=== PATIENT | female | born 1965 | race African-American/Black ===

== ENCOUNTER 2016-10-26 14:08 | Inpatient (IN) | payer OTHER ==
--- NOTE | 2016-10-26 14:16 | ER Document Report ---
ED GI Bleed / Rectal Pain - General Chief Complaint: Rectal Bleeding Stated Complaint: RECTAL BLEEDING Time Seen by Provider: 10/26/16 14:10 Notes: The patient is a 51-year-old female, past medical history diabetes, hypertension , migraines, presents after 2 episodes of bright red blood in her bowel movements. She was feeling slightly lightheaded. She has not had a colonoscopy in the past. She denies rectal pain, abdominal pain, fevers, blood thinner use, chest pain, shortness of breath, rectal trauma or urinary symptoms. TRAVEL OUTSIDE OF THE [place] IN LAST 30 DAYS: No - Related Data Allergies/Adverse Reactions: No Known Allergies Allergy (Unverified 10/26/16 14:16) Home Medications: Current Home Medications No Home Medications 10/26/16 [History] Past Medical History - General Information source: Patient - Social History Smoking Status: Unknown if Ever Smoked Family History: Reviewed & Not Pertinent - Past Medical History Cardiac Medical History: Reports: Hx Hypertension Endocrine Medical History: Reports: Hx Diabetes Mellitus Type 2 Review of Systems - Review of Systems Notes: REVIEW OF SYSTEMS: CONSTITUTIONAL: -fevers, -chills EENT: -eye pain, -difficulty swallowing, -nasal congestion CARDIOVASCULAR:-chest pain, -syncope. RESPIRATORY: -cough, -SOB GASTROINTESTINAL: +BRB per rectum, -abdominal pain, - nausea, -vomiting, - diarrhea GENITOURINARY: -dysuria, -hematuria MUSCULOSKELETAL: -back pain, -neck pain SKIN: -rash or skin lesions. HEMATOLOGIC: -easy bruising or bleeding. LYMPHATIC: -swollen, enlarged glands. NEUROLOGICAL: -altered mental status or loss of consciousness, -headache, - neurologic symptoms PSYCHIATRIC: -anxiety, -depression. ALL OTHER SYSTEMS REVIEWED AND NEGATIVE. Physical Exam - Vital signs Vitals: Pulse BP 109 H 149/108 H 10/26/16 14:43 10/26/16 14:43 - Notes Notes: PHYSICAL EXAMINATION: GENERAL: Well-appearing, well-nourished and in no acute distress. HEAD: Atraumatic, normocephalic. EYES: Pupils equal round and reactive to light, extraocular movements intact, sclera anicteric, conjunctiva are normal. ENT: nares patent, oropharynx clear without exudates. Moist mucous membranes. NECK: Normal range of motion, supple without lymphadenopathy LUNGS: Breath sounds clear to auscultation bilaterally and equal. No wheezes rales or rhonchi. HEART: Tachycardic, regular rhythm ABDOMEN: Soft, nontender, normoactive bowel sounds. BRB on rectal exam, no masses or hemorrhoids, No guarding, no rebound. No masses appreciated. EXTREMITIES: Normal range of motion, no pitting or edema. No cyanosis. NEUROLOGICAL: Cranial nerves grossly intact. Normal speech, normal gait. Normal sensory and motor exams. PSYCH: Normal mood, normal affect. SKIN: Warm, Dry, normal turgor, no rashes or lesions noted. Course - Re-evaluation Re-evalutation: 10/26/16 14:39 Pt had a syncopal episode that lasted ~20 seconds after she stood up while in the ER. No seizure activity was witnessed 10/26/16 15:03 Pt with continuing lower GI bleed. With tachycardia and syncope, pt needs Inpatient evaluation of her rectal bleeding. No GI adapted physical education aide today. Pt requesting transfer to [place]. Placed call to Transfer Center at 15:00. Awaiting callback. 10/26/16 15:[address] Reno at [facility] and she has accepted the patient. Awaiting bed assignment. 10/26/16 17:55 Updated call sheet provided to me. Dr. Connors (GI) is adapted physical education aide on the updated list. Left message to have him call back. Spoke to Dr. Santiago ( Hospitalist) and he has accepted patient to Tele as Inpatient. 10/26/16 19:[address] Connors about patient. Will perform colonoscopy in the morning unless patient becomes unstable overnight. - Vital Signs Vital signs: Temp Pulse Resp BP Pulse Ox 98.1 F 109 H 14 172/106 H 100 10/26/16 17:00 10/26/16 14:43 10/26/16 18:01 10/26/16 18:01 10/26/16 18:01 - Laboratory Result Diagrams: 10/26/16 16:25 10/26/16 14:20 Laboratory results interpreted by me: 10/26/16 10/26/16 10/26/16 14:20 14:20 14:38 WBC RBC 3.70 L Hgb 10.9 L Hct 33.1 L Absolute Neutrophils Est GFR ( Amer) 54 L Est GFR (Non-Af Amer) 45 L Glucose 168 H POC Glucose 176 H 10/26/16 16:25 WBC 14.1 H D RBC 3.26 L Hgb 9.9 L Hct 29.4 L Absolute Neutrophils 11.0 H Est GFR ( Amer) Est GFR (Non-Af Amer) Glucose POC Glucose Discharge - Discharge Clinical Impression: Lower GI bleed Syncope Qualifiers: Syncope type: unspecified Qualified Code(s): R55 - Syncope and collapse Condition: Stable Disposition: ADMITTED INPATIENT Admitting [facility] Admitted: Telemetry
[2016-10-26] MEDS ORDERED: NORMAL SALINE 1000 ML 1,000 ML IV ONE ×2 (14:23→16:50)
[2016-10-26 14:46] LABS: ABSOLUTE EOSINOPHILS # (AUTO) 0.1 10^3/uL (0.0-0.6); ABSOLUTE LYMPHOCYTES (AUTO) 2.4 10^3/uL (0.5-4.7); ABSOLUTE MONOCYTES (AUTO) 0.3 10^3/uL (0.1-1.4); ABSOLUTE NEUT (AUTO) 3.5 10^3/uL (1.7-8.2); BASOPHILS % (AUTO) 0.5 % (0-2); EOSINOPHILS % (AUTO) 1.9 % (0-6); HEMATOCRIT 33.1 % (36.0-47.0); HEMOGLOBIN 10.9 g/dL (12.0-15.5); HGB HCT DIFFERENCE -0.4; LYMPHOCYTES % (AUTO) 37.7 % (13-45); MEAN CORPUSCULAR HEMOGLOBIN 29.6 pg (27.0-33.4); MEAN CORPUSCULAR HGB CONC 33.1 g/dL (32.0-36.0); MEAN CORPUSCULAR VOLUME 89 fl (80-97); MONOCYTES % (AUTO) 4.8 % (3-13); RED CELL DISTRIBUTION WIDTH 13.4 % (11.5-14.0); SEGMENTED NEUTROPHILS % (AUTO) 55.1 % (42-78); WHITE BLOOD COUNT 6.4 10^3/uL (4.0-10.5)
[2016-10-26 15:04] LABS: ALANINE AMINOTRANSFERASE 31 U/L (9-52); ALBUMIN 3.6 g/dL (3.5-5.0); ALKALINE PHOSPHATASE 106 U/L (38-126); ANION GAP 10 (5-19); ASPARTATE AMINO TRANSFERASE 22 U/L (14-36); BILIRUBIN,DIRECT 0.3 mg/dL (0.0-0.4); BILIRUBIN,TOTAL 0.4 mg/dL (0.2-1.3); BLOOD UREA NITROGEN 18 mg/dL (7-20); CALCIUM 8.7 mg/dL (8.4-10.2); CARBON DIOXIDE 28 mmol/L (22-30); CHLORIDE 107 mmol/L (98-107); CREATININE RESULT 1.25 mg/dL (0.52-1.25); GLUCOSE 168 mg/dL (75-110); POTASSIUM 3.6 mmol/L (3.6-5.0); SODIUM 144.7 mmol/L (137-145); TOTAL PROTEIN 7.1 g/dL (6.3-8.2)
[2016-10-26] MEDS ORDERED: ONDANSETRON HCL INJ/PF 4 MG/2 ML SDV IV ONE (16:11)
[2016-10-26 16:43] LABS: ABSOLUTE EOSINOPHILS # (AUTO) 0.1 10^3/uL (0.0-0.6); ABSOLUTE LYMPHOCYTES (AUTO) 2.4 10^3/uL (0.5-4.7); ABSOLUTE MONOCYTES (AUTO) 0.6 10^3/uL (0.1-1.4); BASOPHILS % (AUTO) 0.2 % (0-2); EOSINOPHILS % (AUTO) 0.5 % (0-6); HEMATOCRIT 29.4 % (36.0-47.0); HEMOGLOBIN 9.9 g/dL (12.0-15.5); HGB HCT DIFFERENCE 0.3; LYMPHOCYTES % (AUTO) 17.3 % (13-45); MEAN CORPUSCULAR HEMOGLOBIN 30.4 pg (27.0-33.4); MEAN CORPUSCULAR HGB CONC 33.7 g/dL (32.0-36.0); MEAN CORPUSCULAR VOLUME 90 fl (80-97); RED BLOOD COUNT 3.26 10^6/uL (3.72-5.28)
[2016-10-26 16:50] LABS: WHITE BLOOD COUNT 14.1 10^3/uL (4.0-10.5)
[2016-10-26] MEDS ORDERED: NORMAL SALINE 1000 ML 1,000 ML IV PRN (18:01)
--- NOTE | 2016-10-26 18:54 | PDOC H&P ---
History of Present Illness Admission Date/PCP: 10/26/16 18:27 Patient complains of: Rectal bleeding History of Present Illness: HERBER DOAN is a 51 year old female with a chief complaint of rectal bleeding. The patient denies any gastrointestinal symptoms whatsoever until late last night when she had some stomach "bubbling." Overnight she had 2 separate episodes of bright red blood per rectum that she noticed mainly in the toilet bowl. After the second episode, her found her down on the ground. She was brought to the emergency department today where she had another 2 episodes of bright red blood per rectum. She also had another syncopal episode witnessed by the ED staff. She was somewhat hypotensive. She was started on IV fluids. Her initial hemoglobin was measured at 10.8 and a second sample was measured at 9.8. Dr. Connors gastroenterology has been consulted. The patient specifically denies a history of hemorrhoids, diverticulosis, colitis, and she denies any changes whatsoever in her bowel habits or bowel movement itself. She also denies nonspecific symptoms such as fever chills sweats or weight loss. She also denies nausea and vomiting. There is no family history of GI bleeding. She thinks perhaps her father had diverticulosis but it was never anything major. Past Medical History Cardiac Medical History: Reports: Hypertension Endocrine Medical History: Reports: Diabetes Mellitus Type 2 Social History Information Source: Patient Lives with: Family Smoking Status: Never Smoker Frequency of Alcohol Use: None Hx Recreational Drug Use: No Hx Prescription Drug Abuse: No Family History Family History: Reviewed & Not Pertinent Parental Family History Reviewed: Yes - Mother with HTN and DM. Father with HTN and diverticulosis. Children Family History Reviewed: No Sibling(s) Family History Reviewed.: No Medication/Allergy Home Medications: No Home Medications 10/26/16 Allergies/Adverse Reactions: No Known Allergies Allergy (Unverified 10/26/16 14:16) Review of Systems Constitutional: ABSENT: chills, fever(s), headache(s), weight gain, weight loss Eyes: ABSENT: visual disturbances Ears: ABSENT: hearing changes Cardiovascular: ABSENT: chest pain, dyspnea on exertion, edema, orthropnea, palpitations Respiratory: ABSENT: cough, hemoptysis Gastrointestinal: ABSENT: abdominal pain, constipation, diarrhea, hematemesis, nausea, vomiting Genitourinary: ABSENT: dysuria, hematuria Musculoskeletal: ABSENT: joint swelling Integumentary: ABSENT: rash, wounds Neurological: ABSENT: abnormal gait, abnormal speech, confusion, dizziness, focal weakness, syncope Psychiatric: ABSENT: anxiety, depression, homidical ideation, suicidal ideation Endocrine: ABSENT: cold intolerance, heat intolerance, polydipsia, polyuria Hematologic/Lymphatic: ABSENT: easy bleeding, easy bruising Physical Exam Vital Signs: Temp Pulse Resp BP Pulse Ox 98.1 F 109 H 14 172/106 H 100 10/26/16 17:00 10/26/16 14:43 10/26/16 18:01 10/26/16 18:01 10/26/16 18:01 General appearance: PRESENT: no acute distress, well-developed, well-nourished, other - obese Head exam: PRESENT: atraumatic, normocephalic Eye exam: PRESENT: conjunctiva pink, EOMI, PERRLA. ABSENT: scleral icterus Ear exam: PRESENT: normal external ear exam Mouth exam: PRESENT: moist, tongue midline Neck exam: ABSENT: carotid bruit, JVD, lymphadenopathy, thyromegaly Respiratory exam: PRESENT: clear to auscultation dawson. ABSENT: rales, rhonchi, wheezes Cardiovascular exam: PRESENT: RRR. ABSENT: diastolic murmur, rubs, systolic murmur Pulses: PRESENT: normal dorsalis pedis pul Vascular exam: PRESENT: normal capillary refill GI/Abdominal exam: PRESENT: normal bowel sounds, soft. ABSENT: distended, guarding, mass, organolmegaly, rebound, tenderness Rectal exam: PRESENT: deferred Extremities exam: PRESENT: full ROM. ABSENT: calf tenderness, clubbing, pedal edema Neurological exam: PRESENT: alert, awake, oriented to person, oriented to place , oriented to time, oriented to situation, CN II-XII grossly intact. ABSENT: motor sensory deficit Psychiatric exam: PRESENT: appropriate affect, normal mood. ABSENT: homicidal ideation, suicidal ideation Skin exam: PRESENT: dry, intact, warm. ABSENT: cyanosis, rash Assessment & Plan - Diagnosis (1) Lower GI bleed Is this a current diagnosis for this admission?: YesPlan: Monitor hemoglobin every 6 hours. We will observed in the IMCU so she can be monitored in view of the 2 recent syncopal episodes. Gastroenterology consult is pending. (2) Syncope Qualifiers: Syncope type: unspecified Qualified Code(s): R55 - Syncope and collapse Is this a current diagnosis for this admission?: YesPlan: The syncope is almost certainly related to the GI bleeding, hypovolemia, hypotension, etc. She was on IV fluids. Will watch closely. (3) DM2 (diabetes mellitus, type 2) Qualifiers: Diabetes mellitus complication status: without complication Diabetes mellitus shelter insulin use: without predatory animal exterminator use Qualified Code(s): E11.9 - Type 2 diabetes mellitus without complications Is this a current diagnosis for this admission?: YesPlan: We will check a hemoglobin A1c. We will continue her Januvia. (4) HTN (hypertension) Qualifiers: Hypertension type: essential hypertension Qualified Code(s): I10 - Essential (primary) hypertension Is this a current diagnosis for this admission?: YesPlan: The patient admits to a history of hypertension but also tells me she is not using any medications. At present she is hypotensive. We will monitor. (5) Obesity (BMI 30.0-34.9) Is this a current diagnosis for this admission?: Yes - Time Time Spent: 30 to 50 Minutes Medications reviewed and adjusted accordingly: Yes Anticipated discharge: Home
[2016-10-26] MEDS ORDERED: DEXTROSE 40% GEL 15 GM TUBE PO PRN ×2 (19:21)
[2016-10-26] MEDS ORDERED: DEXTROSE 50%-WATER 25 GM/50 ML DISP.SYRIN IV PRN ×2 (19:21)
[2016-10-26] MEDS ORDERED: GLUCAGON,HUMAN RECOMB 1 MG INJ SUBCUT PRN (19:21)
--- NOTE | 2016-10-26 19:23 | EKG REPORT ---
SEVERITY:- BORDERLINE ECG - SINUS TACHYCARDIA BORDERLINE T ABNORMALITIES, ANTERIOR LEADS : Confirmed by: Abdoulaye Sears MD 26-Oct-2016 19:22:19
[2016-10-26 19:28] LABS: HEMOGLOBIN 9.4 g/dL (12.0-15.5); HGB HCT DIFFERENCE 0.2; MEAN CORPUSCULAR HEMOGLOBIN 29.8 pg (27.0-33.4); MEAN CORPUSCULAR HGB CONC 33.5 g/dL (32.0-36.0); MEAN CORPUSCULAR VOLUME 89 fl (80-97); RED BLOOD COUNT 3.15 10^6/uL (3.72-5.28); RED CELL DISTRIBUTION WIDTH 13.3 % (11.5-14.0); WHITE BLOOD COUNT 10.3 10^3/uL (4.0-10.5)
[2016-10-26] MEDS ORDERED: HYDRALAZINE HCL INJ/PF 20 MG/1 ML SDV IV ONE (20:24)
[2016-10-26] MEDS ORDERED: PEG 3350/NA SULF,BICARB,CL/KCL 4000 ML PO ONE (20:30)
[2016-10-26] MEDS: PANTOPRAZOLE SODIUM 40 MG VIAL IV SCH (22:06)
[2016-10-27] MEDS ORDERED: MORPHINE SULFATE 10 MG/ML INJ ONE (03:14)
[2016-10-27] MEDS ORDERED: MORPHINE SULFATE 10 MG/ML INJ IV ONE (03:45)
[2016-10-27 04:50] LABS: ABSOLUTE MONOCYTES (AUTO) 0.3 10^3/uL (0.1-1.4); ABSOLUTE NEUT (AUTO) 4.7 10^3/uL (1.7-8.2); BASOPHILS % (AUTO) 0.5 % (0-2); EOSINOPHILS % (AUTO) 0.7 % (0-6); HEMATOCRIT 24.8 % (36.0-47.0); HEMOGLOBIN 8.5 g/dL (12.0-15.5); HGB HCT DIFFERENCE 0.7; LYMPHOCYTES % (AUTO) 27.8 % (13-45); MEAN CORPUSCULAR HEMOGLOBIN 30.4 pg (27.0-33.4); MEAN CORPUSCULAR HGB CONC 34.1 g/dL (32.0-36.0); MEAN CORPUSCULAR VOLUME 89 fl (80-97); MONOCYTES % (AUTO) 4.6 % (3-13); RED BLOOD COUNT 2.78 10^6/uL (3.72-5.28); RED CELL DISTRIBUTION WIDTH 13.4 % (11.5-14.0); SEGMENTED NEUTROPHILS % (AUTO) 66.4 % (42-78)
[2016-10-27 05:06] LABS: ANION GAP 8 (5-19); BLOOD UREA NITROGEN 19 mg/dL (7-20); CALCIUM 7.9 mg/dL (8.4-10.2); CARBON DIOXIDE 25 mmol/L (22-30); CHLORIDE 110 mmol/L (98-107); CREATININE RESULT 1.04 mg/dL (0.52-1.25); GLUCOSE 142 mg/dL (75-110); POTASSIUM 3.8 mmol/L (3.6-5.0); SODIUM 143.2 mmol/L (137-145)
[2016-10-27] MEDS ORDERED: NORMAL SALINE 250 ML IV PRN ×2 (05:39)
[2016-10-27] MEDS: PANTOPRAZOLE SODIUM 40 MG VIAL IV SCH (10:05)
[2016-10-27 11:42] LABS: PROTHROMBIN TIME 13.1 SEC (11.4-15.4)
[2016-10-27 11:43] LABS: PARTIAL THROMBOPLASTIN TIME 30.8 SEC (23.5-35.8)
[2016-10-27] MEDS ORDERED: NORMAL SALINE 1000 ML 1,000 ML IV PRN (11:45)
--- NOTE | 2016-10-27 11:57 | PDOC PROGRESS REPORT ---
Subjective Progress Note for:: 10/27/16 Subjective:: The patient denies any gastrointestinal symptoms whatsoever until late night when she had some stomach "bubbling." Overnight she had 2 separate episodes of bright red blood per rectum that she noticed mainly in the toilet bowl. After the second episode, her found her down on the ground. She was brought to the emergency department 10/26/2016 where she had another 2 episodes of bright red blood per rectum. She also had another syncopal episode witnessed by the ED staff. She was somewhat hypotensive. She was started on IV fluids. Her initial hemoglobin was measured at 10.8 and a second sample was measured at 9.8. She was admitted and Dr. Connors gastroenterology was consulted. The patient specifically denies a history of hemorrhoids, diverticulosis, colitis, and she denies any changes whatsoever in her bowel habits or bowel movement itself. She also denies nonspecific symptoms such as fever chills sweats or weight loss. She also denies nausea and vomiting. There is no family history of GI bleeding. She thinks perhaps her father had diverticulosis but it was never anything major. The patient has received IV fluids of D5 normal saline at 125 mL/h. Her hemoglobins have been checked every 6 hours and have documented a continued drop. The initial hemoglobin was 10.9 and earlier today it was 8.5. 3 units of packed red blood cell transfusions have been ordered. Gastroenterology plans a procedure today. The patient's only complaint is that of mild headache. She denies dizziness. There have been no other syncopal episodes. She has not been hypotensive. Her pulse is in the 100-110 range. Physical Exam Vital Signs: Temp Pulse Resp BP Pulse Ox 98.4 F 104 H 18 165/95 H 100 10/27/16 09:29 10/27/16 09:29 10/27/16 09:29 10/27/16 09:29 10/27/16 09:29 Intake & Output 10/26/16 10/27/16 10/28/16 06:59 06:59 06:59 Intake Total 4395 0 Output Total 750 Balance 3645 0 Weight 100.6 kg Additional comments: General appearance: PRESENT: no acute distress, well-developed, well-nourished, other - obese Head exam: PRESENT: atraumatic, normocephalic Eye exam: PRESENT: conjunctiva pink, EOMI, PERRLA. ABSENT: scleral icterus Ear exam: PRESENT: normal external ear exam Mouth exam: PRESENT: moist, tongue midline Neck exam: ABSENT: carotid bruit, JVD, lymphadenopathy, thyromegaly Respiratory exam: PRESENT: clear to auscultation dawson. ABSENT: rales, rhonchi, wheezes Cardiovascular exam: PRESENT: RRR. ABSENT: diastolic murmur, rubs, systolic murmur Pulses: PRESENT: normal dorsalis pedis pul Vascular exam: PRESENT: normal capillary refill GI/Abdominal exam: PRESENT: normal bowel sounds, soft. ABSENT: distended, guarding, mass, organolmegaly, rebound, tenderness Rectal exam: PRESENT: deferred Extremities exam: PRESENT: full ROM. ABSENT: calf tenderness, clubbing, pedal edema Neurological exam: PRESENT: alert, awake, oriented to person, oriented to place , oriented to time, oriented to situation, CN II-XII grossly intact. ABSENT: motor sensory deficit Psychiatric exam: PRESENT: appropriate affect, normal mood. ABSENT: homicidal ideation, suicidal ideation Skin exam: PRESENT: dry, intact, warm. ABSENT: cyanosis, rash Results Laboratory Results: 10/27/16 04:29 10/27/16 04:29 10/26/16 10/27/16 10/27/16 19:10 04:29 04:29 WBC 10.3 7.0 RBC 3.15 L 2.78 L Hgb 9.4 L 8.5 L Hct 28.0 L 24.8 L MCV 89 89 MCH 29.8 30.4 MCHC 33.5 34.1 RDW 13.3 13.4 Plt Count 227 238 Seg Neutrophils % 66.4 Lymphocytes % 27.8 Monocytes % 4.6 Eosinophils % 0.7 Basophils % 0.5 Absolute Neutrophils 4.7 Absolute Lymphocytes 2.0 Absolute Monocytes 0.3 Absolute Eosinophils 0.0 Absolute Basophils 0.0 Sodium 143.2 Potassium 3.8 Chloride 110 H Carbon Dioxide 25 Anion Gap 8 BUN 19 Creatinine 1.04 Est GFR ( Amer) > 60 Est GFR (Non-Af Amer) 56 L Glucose 142 H Calcium 7.9 L Assessment & Plan - Diagnosis (1) Lower GI bleed Is this a current diagnosis for this admission?: YesPlan: Rectal bleeding continues and progressive anemia is documented. Gastroenterology is now following and plans a procedure at this afternoon. (2) Blood loss anemia Is this a current diagnosis for this admission?: YesPlan: 3 units of packed red blood cell transfusion ordered. Will continue to monitor. (3) Syncope Qualifiers: Syncope type: unspecified Qualified Code(s): R55 - Syncope and collapse Is this a current diagnosis for this admission?: YesPlan: There has been no further dizziness or syncope. (4) DM2 (diabetes mellitus, type 2) Qualifiers: Diabetes mellitus complication status: without complication Diabetes mellitus exterminator termite insulin use: without exterminator termite use Qualified Code(s): E11.9 - Type 2 diabetes mellitus without complications Is this a current diagnosis for this admission?: YesPlan: Glucose control is in acceptable range. (5) HTN (hypertension) Qualifiers: Hypertension type: essential hypertension Qualified Code(s): I10 - Essential (primary) hypertension Is this a current diagnosis for this admission?: YesPlan: Blood pressure is in acceptable range. She is not hypotensive. (6) Obesity (BMI 30.0-34.9) Is this a current diagnosis for this admission?: Yes
[2016-10-27] MEDS ORDERED: OXYCODONE HCL IR 5 MG TABLET PO PRN (12:54)
[2016-10-27] MEDS ORDERED: ACETAMINOPHEN 325 MG TABLET PO PRN (12:55)
[2016-10-27] MEDS ORDERED: ONDANSETRON 4 MG TAB.RAPDIS PO PRN (12:56)
[2016-10-27] MEDS ORDERED: LISINOPRIL 10 MG TABLET PO ONE (13:30)
[2016-10-27] MEDS ORDERED: NALOXONE HCL INJ/PF 0.4 MG/1 ML SDV ONE (17:25)
[2016-10-27] MEDS ORDERED: FENTANYL CITRATE INJ/PF 100 MCG/2 ML AMPUL ONE (17:26)
[2016-10-27] MEDS ORDERED: EPINEPHRINE INJ 1 MG/10 ML DISP.SYRIN ONE (17:26)
[2016-10-27] MEDS ORDERED: FLUMAZENIL INJ 0.5 MG/5 ML VIAL IV ONE (17:26)
[2016-10-27] MEDS ORDERED: GLUCAGON,HUMAN RECOMB 1 MG INJ ONE (17:26)
[2016-10-27] MEDS: MIDAZOLAM 2 MG/2 ML INJ ONE ×2 (18:23→18:40)
--- NOTE | 2016-10-27 19:14 | PDOC CONSULTATION ---
Consultation Consult Date: 10/26/16 History of Present Illness Admission Date/PCP: 10/26/16 18:01 History of Present Illness: This is a 51-year-old patient admitted with rectal bleeding. This started suddenly the afternoon before presentation to the emergency room. She had multiple bowel movements that were bloody including when she used the bowel prep. There is no abdominal pain, nausea, or vomiting. She has never had a colonoscopy. Her hemoglobin dropped enough that she requires blood transfusion. Past Medical History Cardiac Medical History: Reports: Hypertension Neurological Medical History: Denies: Seizures Endocrine Medical History: Reports: Diabetes Mellitus Type 2 Social History Lives with: Family Smoking Status: Never Smoker Frequency of Alcohol Use: None Hx Recreational Drug Use: No Drugs: None Hx Prescription Drug Abuse: No - Advance Directive Resuscitation Status: Full Code Family History Family History: Reviewed & Not Pertinent Parental Family History Reviewed: No Children Family History Reviewed: NA Sibling(s) Family History Reviewed.: NA Medication/Allergy Home Medications: Lisinopril [Prinivil 10 mg Tablet] 10 mg PO DAILY 10/26/16 Sitagliptin Phosphate [Januvia 50 mg Tablet] 50 mg PO DAILY 10/26/16 Sumatriptan Succinate [Imitrex 25 mg Tablet] 25 mg PO ASDIR PRN 10/26/16 Allergies/Adverse Reactions: No Known Allergies Allergy (Unverified 10/26/16 14:16) Review of Systems All systems: reviewed and no additional remarkable complaints except as stated Physical Exam Vital Signs: Temp Pulse Resp BP Pulse Ox 98.6 F 98 15 168/102 H 95 10/27/16 18:07 10/27/16 19:10 10/27/16 19:10 10/27/16 19:10 10/27/16 19:10 Intake & Output 10/26/16 10/27/16 10/28/16 06:59 06:59 06:59 Intake Total 4395 1725 Output Total 750 Balance 3645 1725 Weight 100.6 kg 100.6 kg Exam: General: Patient is alert and looks well. HEENT: There is some pallor but no jaundice. PERRLA. Oropharynx normal Respiratory: No chest deformity. No respiratory distress. Chest wall palpitation was unremarkable. Breath sounds were normal Cardiovascular: Heart sounds 1 and 2 normal with no murmurs. Abdominal: Not distended. Soft and nontender. Liver and spleen not palpable. No ascites demonstrated. Bowel sounds active. Rectal examination was deferred. Extremities: No edema Neurological: Alert and oriented x4. Grossly nonfocal. Normal speech Skin: No significant rash Psychological: Normal affect Results Laboratory Results: 10/27/16 04:29 10/27/16 04:29 10/26/16 10/27/16 10/27/16 19:10 04:29 04:29 WBC 10.3 7.0 RBC 3.15 L 2.78 L Hgb 9.4 L 8.5 L Hct 28.0 L 24.8 L MCV 89 89 MCH 29.8 30.4 MCHC 33.5 34.1 RDW 13.3 13.4 Plt Count 227 238 Seg Neutrophils % 66.4 Lymphocytes % 27.8 Monocytes % 4.6 Eosinophils % 0.7 Basophils % 0.5 Absolute Neutrophils 4.7 Absolute Lymphocytes 2.0 Absolute Monocytes 0.3 Absolute Eosinophils 0.0 Absolute Basophils 0.0 Sodium 143.2 Potassium 3.8 Chloride 110 H Carbon Dioxide 25 Anion Gap 8 BUN 19 Creatinine 1.04 Est GFR ( Amer) > 60 Est GFR (Non-Af Amer) 56 L Glucose 142 H Calcium 7.9 L Assessment & Plan - Diagnosis (1) Rectal bleeding Is this a current diagnosis for this admission?: YesPlan: Differential diagnosis for her bleeding include diverticulosis, colon polyp, GI neoplasm, less likely upper GI pathology. She will undergo an EGD and colonoscopy. (2) Blood loss anemia Is this a current diagnosis for this admission?: Yes (3) Lower GI bleed Is this a current diagnosis for this admission?: Yes
--- NOTE | 2016-10-27 19:18 | Operative Report ---
Operative Report DATE OF SURGERY: 10/27/16 Operative Report: Pre-op diagnosis: Rectal bleeding Post-op diagnosis: 1. Antral gastritis with erosions 2. Cecal polyp 3. Diverticulosis in the sigmoid and ascending colon Surgery: Upper endoscopy with biopsy and Colonoscopy with polypectomy Medications: Versed 2mg, Fentanyl 100mcg IV push Tissue removed: Antral biopsy and colon polyp Procedure: After informed consent obtained from patient, patient's pharynx was sprayed with Hurricane and conscious sedation was achieved. The upper endoscope was then inserted into the esophagus under direct vision and advanced into the stomach and further into the duodenum. Detailed examination of the duodenum, stomach and the esophagus was then performed. A digital rectal examination was performed and this was unremarkable. The colonoscope was inserted into the rectum and advanced to the cecum. The appendiceal orifice and the terminal ileum were both identified. The mucosa was examined into details as the colonoscope was slowly pulled out of the patient. The endoscope was retroflexed in the rectum. Patient tolerated the procedure well. Findings Esophagus: Normal Stomach: Moderate erythema in the gastric antrum with a few erosions Duodenum: Normal Cecum: 3 mm polyp removed by polypectomy Ascending colon: A few [place] diverticuli with no evidence of bleeding Transverse colon: Normal Descending colon: Normal Sigmoid colon: A few diverticuli are noted Rectum: Normal except for internal hemorrhoids Plan: Continue to follow H&H. I suspect her bleeding is from her diverticular disease. She may benefit from a bleeding scan if bleeding continues. Prevacid p.o. OPERATION: .
[2016-10-27 22:00] LABS: ABSOLUTE EOSINOPHILS # (AUTO) 0.1 10^3/uL (0.0-0.6); ABSOLUTE LYMPHOCYTES (AUTO) 2.6 10^3/uL (0.5-4.7); ABSOLUTE MONOCYTES (AUTO) 0.4 10^3/uL (0.1-1.4); ABSOLUTE NEUT (AUTO) 4.5 10^3/uL (1.7-8.2); BASOPHILS % (AUTO) 0.3 % (0-2); EOSINOPHILS % (AUTO) 1.1 % (0-6); HGB HCT DIFFERENCE 1.3; MEAN CORPUSCULAR HEMOGLOBIN 30.1 pg (27.0-33.4); MEAN CORPUSCULAR HGB CONC 34.6 g/dL (32.0-36.0); MEAN CORPUSCULAR VOLUME 87 fl (80-97); MONOCYTES % (AUTO) 5.4 % (3-13); RED BLOOD COUNT 3.68 10^6/uL (3.72-5.28); SEGMENTED NEUTROPHILS % (AUTO) 59.2 % (42-78); WHITE BLOOD COUNT 7.5 10^3/uL (4.0-10.5)
[2016-10-27 22:07] LABS: HEMOGLOBIN 11.1 g/dL (12.0-15.5)
[2016-10-28] MEDS ORDERED: LANSOPRAZOLE 30 MG TAB.RAP.DR PO SCH (08:00)
[2016-10-28 08:28] LABS: ABSOLUTE EOSINOPHILS # (AUTO) 0.1 10^3/uL (0.0-0.6); ABSOLUTE MONOCYTES (AUTO) 0.4 10^3/uL (0.1-1.4); ABSOLUTE NEUT (AUTO) 5.4 10^3/uL (1.7-8.2); BASOPHILS % (AUTO) 0.4 % (0-2); EOSINOPHILS % (AUTO) 1.4 % (0-6); HEMATOCRIT 34.3 % (36.0-47.0); HEMOGLOBIN 11.5 g/dL (12.0-15.5); HGB HCT DIFFERENCE 0.2; LYMPHOCYTES % (AUTO) 25.4 % (13-45); MEAN CORPUSCULAR HEMOGLOBIN 29.4 pg (27.0-33.4); MEAN CORPUSCULAR HGB CONC 33.4 g/dL (32.0-36.0); MEAN CORPUSCULAR VOLUME 88 fl (80-97); MONOCYTES % (AUTO) 4.9 % (3-13); RED CELL DISTRIBUTION WIDTH 14.2 % (11.5-14.0); SEGMENTED NEUTROPHILS % (AUTO) 67.9 % (42-78)
[2016-10-28 08:30] LABS: ANION GAP 11 (5-19); BLOOD UREA NITROGEN 10 mg/dL (7-20); CARBON DIOXIDE 27 mmol/L (22-30); CHLORIDE 107 mmol/L (98-107); CREATININE RESULT 1.13 mg/dL (0.52-1.25); GLUCOSE 158 mg/dL (75-110); POTASSIUM 3.6 mmol/L (3.6-5.0); SODIUM 144.5 mmol/L (137-145)
[2016-10-28] MEDS ORDERED: LISINOPRIL 10 MG TABLET PO SCH (10:00)
--- NOTE | 2016-10-28 15:55 | PDOC DISCHARGE SUMMARY ---
General - Admit/Disc Date/PCP Admission Date/Primary Care Provider: 10/26/16 18:01 Discharge Date: 10/28/16 - Discharge Diagnosis (1) Lower GI bleed Is this a current diagnosis for this admission?: YesSummary: The patient denied any gastrointestinal symptoms whatsoever until late night when she had some stomach "bubbling." Overnight she had 2 separate episodes of bright red blood per rectum that she noticed mainly in the toilet bowl. After the second episode, her found her down on the ground. She was brought to the emergency department 10/26/2016 where she had another 2 episodes of bright red blood per rectum. She also had another syncopal episode witnessed by the ED staff. She was somewhat hypotensive. She was started on IV fluids. Her initial hemoglobin was measured at 10.8 and a second sample was measured at 9.8. She was admitted and Dr. Connors gastroenterology was consulted. The patient specifically denied a history of hemorrhoids, diverticulosis, colitis, and she denied any changes whatsoever in her bowel habits or bowel movement itself. She also denied nonspecific symptoms such as fever chills sweats or weight loss. She also denied nausea and vomiting. There was no family history of GI bleeding. She thinks perhaps her father had diverticulosis but it was never anything major. Serial hemoglobins were checked every 6 hours and documented a continued drop to 8.5. She was given 3 units of packed red blood cells. Hb phil to 11.1 and remained stable after that. The rectal bleeding stopped spontaneously. The patient was seen in gastroenterology consultation by . 10/27/2016 he performed his EGD and colonoscopy. EGD showed mild antral gastritis with erosions. The colonoscopy showed a 3 mm cecal polyp which was biopsied/removed and diverticulosis. There was no evidence of active bleeding. No other lesions were seen. Of note, the patient has chronic headaches. She uses Imitrex as needed. She also uses Excedrin on a daily basis. She was asked to reduce or discontinue that. (2) Blood loss anemia Is this a current diagnosis for this admission?: YesSummary: As above. (3) Syncope Is this a current diagnosis for this admission?: YesSummary: There was no further syncope during the remainder of the hospitalization. (4) DM2 (diabetes mellitus, type 2) Is this a current diagnosis for this admission?: YesSummary: Glucose remained in satisfactory hospital control. (5) HTN (hypertension) Is this a current diagnosis for this admission?: YesSummary: The patient was hypertensive throughout most of the hospitalization. At discharge, her lisinopril was increased. (6) Obesity (BMI 30.0-34.9) Is this a current diagnosis for this admission?: Yes - Additional Information Resuscitation Status: Full Code Discharge Diet: Cardiac, Diabetic Discharge Activity: Activity As Tolerated Home Medications: Sitagliptin Phosphate [Januvia 50 mg Tablet] 50 mg PO DAILY 10/26/16 Sumatriptan Succinate [Imitrex 25 mg Tablet] 25 mg PO ASDIR PRN 10/26/16 Acetaminophen [Tylenol 325 mg Tablet] 650 mg PO Q4HP PRN #0 tablet 10/28/16 Lansoprazole [Prevacid 30 mg Odt Tablet] 30 mg PO ACBRKFST #30 tab.rap. Lisinopril 20 mg PO DAILY #30 tablet 10/28/16 History of Present Illness History of Present Illness: The patient denied any gastrointestinal symptoms whatsoever until late night when she had some stomach "bubbling." Overnight she had 2 separate episodes of bright red blood per rectum that she noticed mainly in the toilet bowl. After the second episode, her found her down on the ground. She was brought to the emergency department 10/26/2016 where she had another 2 episodes of bright red blood per rectum. She also had another syncopal episode witnessed by the ED staff. She was somewhat hypotensive. She was started on IV fluids. Her initial hemoglobin was measured at 10.8 and a second sample was measured at 9.8. She was admitted and Dr. Connors gastroenterology was consulted. The patient specifically denied a history of hemorrhoids, diverticulosis, colitis, and she denied any changes whatsoever in her bowel habits or bowel movement itself. She also denied nonspecific symptoms such as fever chills sweats or weight loss. She also denied nausea and vomiting. There was no family history of GI bleeding. She thinks perhaps her father had diverticulosis but it was never anything major. Hospital Course Hospital Course: Serial hemoglobins were checked every 6 hours and documented a continued drop to 8.5. She was given 3 units of packed red blood cells. Hb phil to 11.1 and remained stable after that. The rectal bleeding stopped spontaneously. The patient was seen in gastroenterology consultation by . 10/27/2016 he performed an EGD and colonoscopy. EGD showed mild antral gastritis with erosions. The colonoscopy showed a 3 mm cecal polyp which was biopsied/removed and diverticulosis. There was no evidence of active bleeding. No other lesions were seen. Of note, the patient has chronic headaches. She uses Imitrex as needed. She also uses Excedrin on a daily basis. She was asked to reduce or discontinue that. She was started on a PPI. Physical Exam Vital Signs: Temp Pulse Resp BP Pulse Ox 98.3 F 96 20 170/98 H 99 10/28/16 11:12 10/28/16 14:00 10/28/16 11:12 10/28/16 11:12 10/28/16 11:12 Intake & Output 10/27/16 10/28/16 10/29/16 06:59 06:59 06:59 Intake Total 4395 1725 400 Output Total 750 0 Balance 3645 1725 400 Weight 100.6 kg 104.7 kg Additional comments: General appearance: PRESENT: no acute distress, well-developed, well-nourished, other - obese Head exam: PRESENT: atraumatic, normocephalic Eye exam: PRESENT: conjunctiva pink, EOMI, PERRLA. ABSENT: scleral icterus Ear exam: PRESENT: normal external ear exam Mouth exam: PRESENT: moist, tongue midline Neck exam: ABSENT: carotid bruit, JVD, lymphadenopathy, thyromegaly Respiratory exam: PRESENT: clear to auscultation dawson. ABSENT: rales, rhonchi, wheezes Cardiovascular exam: PRESENT: RRR. ABSENT: diastolic murmur, rubs, systolic murmur Pulses: PRESENT: normal dorsalis pedis pul Vascular exam: PRESENT: normal capillary refill GI/Abdominal exam: PRESENT: normal bowel sounds, soft. ABSENT: distended, guarding, mass, organolmegaly, rebound, tenderness Rectal exam: PRESENT: deferred Extremities exam: PRESENT: full ROM. ABSENT: calf tenderness, clubbing, pedal edema Neurological exam: PRESENT: alert, awake, oriented to person, oriented to place , oriented to time, oriented to situation, CN II-XII grossly intact. ABSENT: motor sensory deficit Psychiatric exam: PRESENT: appropriate affect, normal mood. ABSENT: homicidal ideation, suicidal ideation Skin exam: PRESENT: dry, intact, warm. ABSENT: cyanosis, rash Results Laboratory Results: 10/28/16 07:58 10/28/16 07:58 10/27/16 10/28/16 10/28/16 21:55 07:58 07:58 WBC 7.5 8.0 RBC 3.68 L 3.90 Hgb 11.1 L D 11.5 L Hct 32.0 L 34.3 L MCV 87 88 MCH 30.1 29.4 MCHC 34.6 33.4 RDW 14.0 14.2 H Plt Count 192 215 Seg Neutrophils % 59.2 67.9 Lymphocytes % 34.0 25.4 Monocytes % 5.4 4.9 Eosinophils % 1.1 1.4 Basophils % 0.3 0.4 Absolute Neutrophils 4.5 5.4 Absolute Lymphocytes 2.6 2.0 Absolute Monocytes 0.4 0.4 Absolute Eosinophils 0.1 0.1 Absolute Basophils 0.0 0.0 Sodium 144.5 Potassium 3.6 Chloride 107 Carbon Dioxide 27 Anion Gap 11 BUN 10 Creatinine 1.13 Est GFR ( Amer) > 60 Est GFR (Non-Af Amer) 51 L Glucose 158 H Calcium 9.0 Qualifiers PATEINT BEING DISCHARGED WITH ANY OF THE FOLLOWING DIAGNOSIS?: No Plan Discharge Plan: The patient's diverticular bleed stopped spontaneously. After transfusions, the hemoglobin was greater than 11 and stable. For the antral gastritis with erosions problem was asked to reduce or discontinue Excedrin and to start PPI for 1 month. For the hypertension she was asked to double her lisinopril from 10-20 mg daily. She will follow-up with her primary care physician and with the mobility manager in 1-2 weeks.
[2016-10-28 17:13] VITALS: BP 158/99
== END 2016-10-28 17:44 | disposition home or self-care (01) | DRG 379 ==
LOC: ER 14:08 → EH 18:01 → UNDOADMIN 18:27 → 3W 20:58
PROVIDERS: ADMIT Family Medicine; ATTEND Family Medicine
PROC: 30233N1 Transfusion of Nonautologous Red Blood Cells into Peripheral Vein, Percutaneous Approach (ICD-10-PCS; 2016-10-27)
PROC: 0DBH8ZX Excision of Cecum, Via Natural or Artificial Opening Endoscopic, Diagnostic (ICD-10-PCS; principal; 2016-10-27 18:45)
PROC: 0DB68ZX Excision of Stomach, Via Natural or Artificial Opening Endoscopic, Diagnostic (ICD-10-PCS; 2016-10-27 18:45)
DX: K57.31 Diverticulosis of large intestine without perforation or abscess with bleeding (principal); D50.0 Iron deficiency anemia secondary to blood loss (chronic); D12.0 Benign neoplasm of cecum; K25.9 Gastric ulcer, unspecified as acute or chronic, without hemorrhage or perforation; K64.8 Other hemorrhoids; I10 Essential (primary) hypertension; G43.909 Migraine, unspecified, not intractable, without status migrainosus; E11.9 Type 2 diabetes mellitus without complications; Z83.3 Family history of diabetes mellitus; Z82.49 Family history of ischemic heart disease and other diseases of the circulatory system; E66.9 Obesity, unspecified; Z68.36 Body mass index [BMI] 36.0-36.9, adult; Z79.899 Other long term (current) drug therapy
CPT/HCPCS: 36415; 36430; 43239; 45380; 80048; 80053; 82272; 82550; 82962; 83036; 84484; 85025; 85027; 85610; 85730; 86850; 86900; 86901; 86920; 88305; 93005; 93010; 96374; 99285; J0171; J0360; J1610; J2250; J2270; J2310; J2405; J3010; J3490; J7030; P9016; S0164

== ENCOUNTER 2016-12-22 07:15 | Emergency (ER) | payer MEDICAID, OTHER ==
[2016-12-22 09:08] LABS: ABSOLUTE EOSINOPHILS # (AUTO) 0.1 10^3/uL (0.0-0.6); ABSOLUTE MONOCYTES (AUTO) 0.4 10^3/uL (0.1-1.4); ABSOLUTE NEUT (AUTO) 6.4 10^3/uL (1.7-8.2); BASOPHILS % (AUTO) 0.3 % (0-2); HEMATOCRIT 36.4 % (36.0-47.0); HEMOGLOBIN 12.1 g/dL (12.0-15.5); HGB HCT DIFFERENCE -0.1; LYMPHOCYTES % (AUTO) 22.5 % (13-45); MEAN CORPUSCULAR HEMOGLOBIN 29.9 pg (27.0-33.4); MEAN CORPUSCULAR HGB CONC 33.3 g/dL (32.0-36.0); MEAN CORPUSCULAR VOLUME 90 fl (80-97); RED BLOOD COUNT 4.05 10^6/uL (3.72-5.28); SEGMENTED NEUTROPHILS % (AUTO) 72.2 % (42-78); WHITE BLOOD COUNT 8.8 10^3/uL (4.0-10.5)
[2016-12-22 09:16] LABS: APPEARANCE,URINE CLOUDY; BILIRUBIN,URINE NEGATIVE (NEGATIVE); GLUCOSE, URINE NEGATIVE (NEGATIVE); KETONES,URINE 20 mg/dL (NEGATIVE); LEUKOCYTE ESTERASE,URINE NEGATIVE (NEGATIVE); NITRITE,URINE NEGATIVE (NEGATIVE); PROTEIN,URINE 100 mg/dL (NEGATIVE); URIC ACID CRYSTALS,URINE MODERATE /HPF; URINE SPECIFIC GRAVITY 1.029; UROBILINOGEN,URINE NEGATIVE mg/dL (<2.0)
[2016-12-22 09:31] LABS: ALANINE AMINOTRANSFERASE 24 U/L (9-52); ALBUMIN 4.2 g/dL (3.5-5.0); ALKALINE PHOSPHATASE 118 U/L (38-126); ANION GAP 10 (5-19); ASPARTATE AMINO TRANSFERASE 22 U/L (14-36); BILIRUBIN,DIRECT 0.3 mg/dL (0.0-0.4); BILIRUBIN,TOTAL 0.6 mg/dL (0.2-1.3); BLOOD UREA NITROGEN 17 mg/dL (7-20); CALCIUM 9.2 mg/dL (8.4-10.2); CARBON DIOXIDE 28 mmol/L (22-30); CHLORIDE 107 mmol/L (98-107); CREATININE RESULT 1.24 mg/dL (0.52-1.25); GLUCOSE 168 mg/dL (75-110); LIPASE 81.3 U/L (23-300); POTASSIUM 4.4 mmol/L (3.6-5.0); SODIUM 144.7 mmol/L (137-145); TOTAL PROTEIN 7.9 g/dL (6.3-8.2)
[2016-12-22] MEDS ORDERED: NORMAL SALINE 1000 ML 1,000 ML IV ONE ×2 (10:38)
--- NOTE | 2016-12-22 12:25 | RADIOLOGY REPORT (SQ) ---
EXAM DESCRIPTION: CT ABD/PELVIS WITH IV ORAL COMPLETED DATE/TIME: 12/22/2016 11:33 am REASON FOR STUDY: eval actue diverticular disease COMPARISON: None. TECHNIQUE: CT scan of the abdomen and pelvis performed using helical scanning technique with dynamic intravenous contrast injection and oral contrast. Images reviewed with lung, soft tissue, and bone w indows. Reconstructed coronal and sagittal MPR images reviewed. Delayed images for evaluation of the urinary system also acquired. All images stored on PACS. All CT scanners at this facility use dose modulation, iterative reconstruction, and/or weight based d osing when appropriate to reduce radiation dose to as low as reasonably achievable (ALARA). [facility]: Dose Right [facility]: CareDose [facility]: Dose Right [facility]: Teradose 4D [facility]: [email or web address] CONTRAST TYPE AND DOSE: contrast/concentration: Isovue 370.00 mg/ml; Total Contrast Delivered: 100.0 ml; Total Saline Delivered: 51.1 ml RENAL FUNCTION: Creatinine 1.24 RADIATION DOSE: Up-to-date CT equipment and radiation dose reduction techniques were employed. CTDIv ol: 17.8 - 20.2 mGy. DLP: 2034 mGy-cm.. LIMITATIONS: None. FINDINGS: LOWER CHEST: No significant findings. No nodules or infiltrates. LIVER: Normal size. No masses. No dilated ducts. SPLEEN: Normal size. No focal lesions. PANCREAS: No masses. No significant calcifications. No adjacent inflammation or peripancreatic fluid collections. Pancreatic duct not dilated. GALLBLADDER: No identified stones by CT criteria. No inflammatory changes to suggest cholecystitis. ADRENAL GLANDS: No significant masses or asymmetry. RIGHT KIDNEY AND URETER: No solid masses. No significant calcifications. No hydronephrosis or hyd roureter. LEFT KIDNEY AND URETER: No solid masses. No significant calcifications. No hydronephrosis or hydr oureter. AORTA AND VESSELS: No aneurysm. No dissection. Renal arteries, SMA, celiac without stenosis. RETROPERITONEUM: No retroperitoneal adenopathy, hemorrhage or masses. BOWEL AND PERITONEAL CAVITY: There is diffuse thickening of the palmer of multiple small bowel loops. This could represent edematous or inflammatory changes. Possibility of an enteritis should be consi dered. Possibility of an infiltrative process should be considered. APPENDIX: Normal. PELVIS: No mass. Normal bladder. Small amount of free fluid is identified in the cul-de-sac. ABDOMINAL WALL: No masses. No hernias. BONES: No significant or acute findings. OTHER: No other significant finding. IMPRESSION: There is diffuse thickening of the palmer of multiple small bowel loops as noted above. This could represent edematous or inflammatory changes. The possibility of an enteritis should be co nsidered. The possibility of infiltrative process should be considered. A small amount of free flui d is identified in the cul-de-sac. Other findings as noted above TECHNICAL DOCUMENTATION: JOB ID: [id number] Quality ID # [id number]: Final reports with documentation of one or more dose reduction techniques (e.g., Au tomated exposure control, adjustment of the mA and/or kV according to patient size, use of iterative reconstruction technique) 2010 [employer]- All Rights Reserved
--- NOTE | 2016-12-22 13:26 | ER Document Report ---
ED General - General Chief Complaint: Abdominal Pain >50 Stated Complaint: ABDOMINAL PAIN Time Seen by Provider: 12/22/16 08:16 TRAVEL OUTSIDE OF THE [place] IN LAST 30 DAYS: No - HPI Patient complains to provider of: Abdominal pain nausea vomiting diarrhea Notes: Patient coming in with above-stated symptoms states diarrhea few days prior to arrival however no recent diarrhea. Patient states was recently evaluated for upper GI bleed had a EGD and colonoscopy showing gastric erosions and acute diverticulosis. Patient denies any bloody stools or dark diarrhea. Denies fevers chills patient denies any recent antibiotics denies any recent trauma - Related Data Allergies/Adverse Reactions: No Known Allergies Allergy (Verified 12/22/16 07:19) Past Medical History - Social History Smoking Status: Never Smoker Chew tobacco use (# tins/day): No Frequency of alcohol use: Occasional Drug Abuse: None Family History: Reviewed & Not Pertinent Patient has suicidal ideation: No Patient has homicidal ideation: No - Past Medical History Cardiac Medical History: Reports: Hx Hypercholesterolemia, Hx Hypertension Neurological Medical History: Reports: Hx Migraine. Denies: Hx Seizures Endocrine Medical History: Reports: Hx Diabetes Mellitus Type 2 Renal/ Medical History: Denies: Hx Peritoneal Dialysis Past Surgical History: Reports: Hx Orthopedic Surgery - left hand Review of Systems - Review of Systems Constitutional: No symptoms reported EENT: No symptoms reported Cardiovascular: No symptoms reported Respiratory: No symptoms reported Gastrointestinal: Abdominal pain, Diarrhea, Nausea, Vomiting Genitourinary: No symptoms reported Female Genitourinary: No symptoms reported Musculoskeletal: No symptoms reported Skin: No symptoms reported Hematologic/Lymphatic: No symptoms reported Neurological/Psychological: No symptoms reported -: Yes All other systems reviewed and negative Physical Exam - Vital signs Vitals: Temp Pulse Resp BP Pulse Ox 98.1 F 100 16 163/96 H 98 12/22/16 07:21 12/22/16 07:21 12/22/16 07:21 12/22/16 07:21 12/22/16 07:21 Interpretation: Normal - General General appearance: Appears well, Alert - HEENT Head: Normocephalic, Atraumatic Eyes: Normal Pupils: PERRL - Respiratory Respiratory status: No respiratory distress Chest status: Nontender Breath sounds: Normal Chest palpation: Normal - Cardiovascular Rhythm: Regular Heart sounds: Normal auscultation Murmur: No - Abdominal Inspection: Normal Distension: No distension Bowel sounds: Normal Tenderness: Tender - Diffuse tenderness. No: McBurney's point, Amezcua's sign, Guarding, Rebound Organomegaly: No organomegaly - Back Back: Normal, Nontender - Extremities General upper extremity: Normal inspection, Nontender, Normal color, Normal ROM , Normal temperature General lower extremity: Normal inspection, Nontender, Normal color, Normal ROM , Normal temperature, Normal weight bearing. No: Serjio's sign - Neurological Neuro grossly intact: Yes Cognition: Normal Orientation: AAOx4 Laquey Coma Scale Eye Opening: Spontaneous [place] Coma Scale Verbal: Oriented [place] Coma Scale Motor: Obeys Commands Laquey Coma Scale Total: 15 Speech: Normal Motor strength normal: LUE, RUE, LLE, RLE Sensory: Normal - Psychological Associated symptoms: Normal affect, Normal mood - Skin Skin Temperature: Warm Skin Moisture: Dry Skin Color: Normal Course - Re-evaluation Re-evalutation: 12/22/16 14:34 The patient presents with abdominal pain without signs of peritonitis or other life-threatening or serious etiology. The patient appears stable for discharge and has been instructed to return immediately if the symptoms worsen in any way , or in 8-12hr if not improved for re-evaluation. The patient has been instructed to return if the symptoms worsen or change in any way. CT scan shows signs of possible enteritis gastroenteritis consistent with patient's symptoms. Will treat with Bentyl and Zomary carmen patient was discharged home - Vital Signs Vital signs: Temp Pulse Resp BP Pulse Ox 98.0 F 92 16 161/106 H 98 12/22/16 13:39 12/22/16 13:39 12/22/16 13:39 12/22/16 13:39 12/22/16 13:39 - Laboratory Result Diagrams: 12/22/16 08:50 12/22/16 08:50 Laboratory results interpreted by me: 12/22/16 12/22/16 08:45 08:50 Est GFR ( Amer) 55 L Est GFR (Non-Af Amer) 45 L Glucose 168 H Urine Protein 100 H Urine Ketones 20 H Urine Ascorbic Acid 40 H Discharge - Discharge Clinical Impression: Gastroenteritis Abdominal pain Qualifiers: Abdominal location: unspecified location Qualified Code(s): R10.9 - Unspecified abdominal pain Condition: Good Disposition: HOME, SELF-CARE Instructions: Abdominal Pain ([facility]), Gastroenteritis (adult) ([facility]) Additional Instructions: Your CAT scan today shows signs of a gastroenteritis. I would recommend she follow up with your primary care physician and your GI specialist. Please continue your medications as prescribed. Take medications as prescribed return to the ER symptoms worsen Prescriptions: Dicyclomine HCl [Bentyl 20 mg Tablet] 20 mg PO QID #30 tablet Ondansetron [Zofran Odt 4 mg Tablet] 1 - 2 tab PO Q4H PRN #20 tab.rapdis PRN Reason: For Nausea/Vomiting Forms: Return to Work
[2016-12-22 13:41] VITALS: BP 161/106
== END 2016-12-22 13:43 | disposition home or self-care (01) ==
LOC: ER 07:15
DX: K52.9 Noninfective gastroenteritis and colitis, unspecified (principal); R10.9 Unspecified abdominal pain; R11.2 Nausea with vomiting, unspecified; R19.7 Diarrhea, unspecified
CPT/HCPCS: 99284; 96360; 36415; 83690; 85025; 80053; 81001; 74177; J7030